=== PATIENT | female | born 1980 | race American Indian/Alaskan Native ===

== ENCOUNTER 2016-12-14 14:17 | Emergency (ER) | payer MEDICAID ==
[2016-12-14] MEDS ORDERED: THERMAZENE 50 GRAM TP SCH (14:22)
[2016-12-14] MEDS ORDERED: ZOFRAN IV ONE (14:35)
[2016-12-14] MEDS ORDERED: MORPHINE IV ONE ×2 (14:35→15:19)
[2016-12-14] MEDS ORDERED: ATIVAN IV ONE (14:35)
[2016-12-14] MEDS ORDERED: DUONEB 0.5 MG-3 MG/3 ML SOLN IH ONE (14:38)
[2016-12-14] MEDS ORDERED: NACL 0.9% 500 ML IR ONE ×2 (14:50→15:03)
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
[2016-12-14] MEDS ORDERED: MORPHINE ONE (15:12)
[2016-12-14 15:30] LABS: Anion Gap 19 mmol/L; Blood Urea Nitrogen 12 mg/dL (7-17); Calcium 9.1 mg/dL (8.4-10.2); Carbon Dioxide 20 mmol/L (22-30); Chloride 103.1 mmol/L (98-107); Glucose 120 mg/dL (65-100); Potassium 3.2 mmol/L (3.6-5.0); Sodium 139 mmol/L (137-145)
[2016-12-14 15:54] LABS: Basophils % (Auto) 0.3 % (0.0-1.8); Eosinophils % (Auto) 1.1 % (0.0-4.3); Hematocrit 38.2 % (30.3-42.9); Hemoglobin 12.9 gm/dl (10.1-14.3); Mean Corpuscular HGB Conc 34 % (30-34); Mean Corpuscular Hemoglobin 29 pg (28-32); Mean Corpuscular Volume 85 fl (79-97); Platelet Count 254 K/mm3 (140-440); Red Blood Count 4.51 M/mm3 (3.65-5.03); Red Cell Distribution Width 15.6 % (13.2-15.2); White Blood Count 5.9 K/mm3 (4.5-11.0)
[2016-12-14] MEDS ORDERED: DILAUDID IV ONE (15:55)
[2016-12-14] MEDS ORDERED: KETALAR IV ONE (16:00)
[2016-12-14] MEDS ORDERED: K-DUR PO ONE (16:06)
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
[2016-12-14] MEDS ORDERED: DILAUDID ONE (16:23)
[2016-12-14] MEDS ORDERED: NORMODYNE IV ONE ×2 (16:24→16:29)
[2016-12-14] MEDS ORDERED: BENADRYL IV ONE (16:29)
[2016-12-14 18:53] VITALS: BP 136/84
--- NOTE | 2016-12-15 09:14 | XRay Report ---
AP CHEST :12/14/16 14:17:00 CLINICAL: Difficulty breathing. COMPARISON:None. FINDINGS: Normal heart and pulmonary vasculature. The lungs are normally expanded and clear. The bones and soft tissues are normal. IMPRESSION: Normal chest.
== END 2016-12-14 18:30 | disposition other institution (70) ==
LOC: ED 14:17
DX: T24.221A Burn of second degree of right knee, initial encounter (principal); T24.222A Burn of second degree of left knee, initial encounter; T21.22XA Burn of second degree of abdominal wall, initial encounter; J45.901 Unspecified asthma with (acute) exacerbation; F41.9 Anxiety disorder, unspecified; E87.6 Hypokalemia; G43.909 Migraine, unspecified, not intractable, without status migrainosus; F17.200 Nicotine dependence, unspecified, uncomplicated; Z91.013 Allergy to seafood; Z88.0 Allergy status to penicillin; Z91.018 Allergy to other foods; X08.8XXA Exposure to other specified smoke, fire and flames, initial encounter; Y93.89 Activity, other specified; Y92.89 Other specified places as the place of occurrence of the external cause; Y99.8 Other external cause status
CPT/HCPCS: 36415; 71010; 80048; 85025; 94640; 96374; 96375; 99291; J1170; J2060; J2270; J2405

== ENCOUNTER 2019-12-04 23:11 | Observation (INO) | payer MEDICAID ==
[2019-12-05 00:01] LABS: Basophils % (Auto) 0.4 % (0.0-1.8); Eosinophils # (Auto) 0.1 K/mm3 (0.0-0.4); Eosinophils % (Auto) 2.4 % (0.0-4.3); Hematocrit 27.2 % (30.3-42.9); Hemoglobin 8.7 gm/dl (10.1-14.3); Lymphocytes # (Auto) 2.5 K/mm3 (1.2-5.4); Lymphocytes % (Auto) 42.1 % (13.4-35.0); Mean Corpuscular HGB Conc 32 % (30-34); Monocytes # (Auto) 0.3 K/mm3 (0.0-0.8); Monocytes % (Auto) 5.3 % (0.0-7.3); Platelet Count 317 K/mm3 (140-440); Red Blood Count 4.27 M/mm3 (3.65-5.03)
[2019-12-05] MEDS ORDERED: MORPHINE 4 MG/1 ML INJ IV ONE (00:02)
[2019-12-05] MEDS ORDERED: ONDANSETRON 4 MG/2 ML INJ IV ONE (00:02)
[2019-12-05 00:03] LABS: Mean Corpuscular Volume 64 fl (79-97); Red Cell Distribution Width 21.4 % (13.2-15.2)
[2019-12-05 00:12] LABS: INR 0.94 (0.87-1.13)
--- NOTE | 2019-12-05 00:21 | Emergency Department Report ---
<CLOTILDE MONET - Last Filed: 12/05/19 04:17> ED Chest Pain HPI - General Chief Complaint: Chest Pain Stated Complaint: CP Time Seen by Provider: 12/04/19 23:43 - Related Data Home Medications Medication Instructions Recorded Confirmed Last Taken Cetirizine HCl [ZyrTEC] 10 mg PO DAILY 12/14/16 12/14/16 Unknown Famotidine [Pepcid] 20 mg PO DAILY 12/14/16 12/14/16 Unknown Allergies Allergy/AdvReac Type Severity Reaction Status Date / Time chicken derived Allergy Hives Verified 12/25/13 19:45 coffee (Coffea arabica) Allergy Hives Verified 12/17/13 02:23 [coffee] peach [[place]] Allergy Hives Verified 12/25/13 19:45 Penicillins Allergy Swelling Verified 08/15/13 12:54 shellfish derived Allergy Hives Verified 12/17/13 02:23 strawberry [[place]] Allergy Hives Verified 12/17/13 02:23 chocolate Allergy Hives Uncoded 12/17/13 02:23 citrus Allergy Hives Uncoded 12/17/13 02:23 garlic Allergy Hives Uncoded 12/17/13 02:23 onion Allergy Hives Uncoded 12/17/13 02:23 tomatoes Allergy Hives Uncoded 12/17/13 02:23 Heart Score - HEART Score History: Slightly suspicious EKG: Non-specific Age: < 45 Risk factors: > 3 risk factors or hx of atherosclerotic disease Troponin: 1-3x normal limit HEART Score: 4 - Critical Actions Critical Actions: 4-6 pts:12-16.6% risk of adverse cardiac event. Should be ad mitted ED Past Medical Hx - Medications Home Medications: Home Medications Medication Instructions Recorded Confirmed Last Taken Type Cetirizine HCl [ZyrTEC] 10 mg PO DAILY 12/14/16 12/14/16 Unknown History Famotidine [Pepcid] 20 mg PO DAILY 12/14/16 12/14/16 Unknown History ED Course - Reevaluation(s) Reevaluation #1: 12/05/19 04:09 CT scan of the chest is negative for acute disease. Patient having persistent chest pain. Her second EKG is unchanged from prior, however, repeat troponin is elevated, with normal renal function. Patient will be admitted to the medical service given persistent chest pain, and elevated troponin. Nitroglycerin is reordered for pain. Hospital physician is paged to arrange admission. Reevaluation #2: 12/05/19 04:17 Case is presented to hospital physician, Dr. Jackie Grewal, who has accepted the patient to the medical service. He requested heparin drip. ED Medical Decision Making - Lab Data Result diagrams: 12/04/19 23:49 12/04/19 23:49 ED Disposition Clinical Impression: Chest pain, Acute chest pain, Elevated troponin, ACS (acute coronary syndrome) Disposition: DC-09 OP ADMIT IP TO THIS HOSP Is pt being admited?: Yes Does the pt Need Aspirin: No (Patient was given aspirin by EMS) Condition: Serious <SHERYL GOVEA - Last Filed: 12/05/19 16:13> ED Chest Pain HPI - General Source: EMS Mode of arrival: Stretcher Limitations: No Limitations - History of Present Illness Initial Comments: 39-year-old -[place] female presents to the emergency department via EMS from home with complaint of left-sided chest pain and some shortness of breath that has been going on since this morning but got worse over the past few hours. She received full dose aspirin and 2 sublingual nitro in route with EMS with some mild improvement. She has a past medical history of hypertension and lupus. The patient also says that she was recently diagnosed with ACS at [facility]. She allegedly had a negative heart cath done in August of last year. The patient does present with some discharge instructions from [facility] that give the diagnoses of "suspected myocarditis", NSTEMI and ACS from when she was admitted there from 11/24 - 11/26. She is an occasional tobacco smoker. She follows with [facility]. No recent travel or sick contacts at home. Severity scale (0 -10): 10 Heart Score - HEART Score History: Slightly suspicious EKG: Normal Age: < 45 Risk factors: > 3 risk factors or hx of atherosclerotic disease Troponin: 1-3x normal limit HEART Score: 3 - Critical Actions Critical Actions: 4-6 pts:12-16.6% risk of adverse cardiac event. Should be admitted ED Review of Systems ROS: Stated complaint: CP Other details as noted in HPI Comment: All other systems reviewed and negative Constitutional: denies: chills, fever Eyes: denies: eye pain, vision change ENT: denies: ear pain, throat pain Respiratory: shortness of breath. denies: cough Cardiovascular: chest pain. denies: palpitations, edema Gastrointestinal: nausea. denies: abdominal pain, vomiting Genitourinary: denies: dysuria, discharge Musculoskeletal: denies: back pain, arthralgia Skin: denies: rash, lesions Neurological: denies: headache, weakness ED Past Medical Hx - Past Medical History Previous Medical History?: Yes Hx Hypertension: No Hx CVA: No Hx Heart Attack/AMI: No Hx Congestive Heart Failure: No Hx Diabetes: No Hx Deep Vein Thrombosis: No Hx Pulmonary Embolism: No Hx GERD: No Hx Liver Disease: No Hx Renal Disease: No Hx Sickle Cell Disease: No Hx Arthritis: No Hx Headaches / Migraines: Yes Hx Seizures: No Hx Kidney Stones: No Hx Psychiatric Treatment: No Hx Asthma: Yes (smokes cigarrettes) Hx COPD: No Hx Tuberculosis: No Hx Dementia: No Hx HIV: No - Surgical History Hx Coronary Stent: No Hx Open Heart Surgery: No Hx Pacemaker: No Hx Internal Defibrillator: No Hx Cholecystectomy: No Hx Appendectomy: No Hx Breast Surgery: No - Social History Smoking Status: Former Smoker Substance Use Type: None ED Physical Exam - General Limitations: No Limitations - Other Other exam information: GENERAL: The patient is well-developed well-nourished. HENT: Normocephalic. Atraumatic. Patient has moist mucous membranes. EYES: Extraocular motions are intact. Pupils equal reactive to light bilaterally. NECK: Supple. Trachea is midline. CHEST/LUNGS: Clear to auscultation. There is no respiratory distress noted. HEART/CARDIOVASCULAR: Regular. There is no tachycardia. ABDOMEN: Abdomen is soft, nontender. Patient has normal bowel sounds. Obese habitus. SKIN: Skin is warm and dry. NEURO: The patient is awake, alert, and oriented. The patient is cooperative. The patient has no focal neurologic deficits. Normal speech. MUSCULOSKELETAL: There is no tenderness or deformity. There is no evidence of acute injury. ED Course Vital Signs 12/04/19 12/04/19 12/04/19 23:35 23:39 23:45 Temperature 97.7 F Pulse Rate 93 H Respiratory 20 Rate Blood Pressure 122/77 118/84 O2 Sat by Pulse 100 100 100 Oximetry 12/04/19 12/05/19 12/05/19 23:55 00:00 00:10 Temperature Pulse Rate 91 H 88 Respiratory 17 13 17 Rate Blood Pressure 118/84 127/84 O2 Sat by Pulse 100 99 Oximetry 12/05/19 12/05/19 12/05/19 00:15 00:31 00:45 Temperature Pulse Rate 81 79 80 Respiratory 20 20 16 Rate Blood Pressure 132/72 132/72 109/63 O2 Sat by Pulse 100 98 97 Oximetry 12/05/19 12/05/19 12/05/19 01:00 01:15 01:30 Temperature Pulse Rate 74 83 79 Respiratory 17 18 15 Rate Blood Pressure 121/72 118/72 109/58 O2 Sat by Pulse 99 Oximetry 12/05/19 12/05/19 12/05/19 01:45 02:00 02:15 Temperature Pulse Rate 79 85 73 Respiratory 16 14 14 Rate Blood Pressure 114/64 118/70 107/64 O2 Sat by Pulse 97 100 100 Oximetry 12/05/19 12/05/19 12/05/19 02:30 02:45 03:00 Temperature Pulse Rate 76 79 75 Respiratory 14 16 15 Rate Blood Pressure 110/63 112/67 107/74 O2 Sat by Pulse 100 100 99 Oximetry 12/05/19 12/05/19 12/05/19 03:15 04:01 04:15 Temperature Pulse Rate 73 76 Respiratory 16 22 Rate Blood Pressure 107/74 107/74 107/66 O2 Sat by Pulse 99 97 99 Oximetry 12/05/19 12/05/19 12/05/19 04:30 04:45 05:00 Temperature Pulse Rate 74 73 70 Respiratory 13 14 14 Rate Blood Pressure 100/63 109/61 111/60 O2 Sat by Pulse 97 99 97 Oximetry 12/05/19 12/05/19 12/05/19 05:15 05:30 05:45 Temperature Pulse Rate 74 79 98 H Respiratory 13 18 23 Rate Blood Pressure 114/63 123/60 123/60 O2 Sat by Pulse 98 98 100 Oximetry 12/05/19 12/05/19 12/05/19 06:00 06:15 06:30 Temperature Pulse Rate 79 73 70 Respiratory 13 13 14 Rate Blood Pressure 113/70 110/66 114/64 O2 Sat by Pulse 100 99 100 Oximetry 12/05/19 12/05/19 12/05/19 06:45 07:00 07:15 Temperature Pulse Rate 67 75 80 Respiratory 13 14 13 Rate Blood Pressure 111/65 121/74 110/68 O2 Sat by Pulse 97 99 97 Oximetry 12/05/19 12/05/19 12/05/19 07:30 07:45 08:00 Temperature Pulse Rate 72 77 78 Respiratory 13 13 14 Rate Blood Pressure 109/67 103/70 113/66 O2 Sat by Pulse 98 99 100 Oximetry 12/05/19 12/05/19 12/05/19 08:15 08:31 08:45 Temperature Pulse Rate 81 84 88 Respiratory 15 11 L 15 Rate Blood Pressure 117/70 124/61 121/66 O2 Sat by Pulse 99 99 99 Oximetry 12/05/19 12/05/19 09:00 09:11 Temperature Pulse Rate 73 79 Respiratory 14 11 L Rate Blood Pressure 119/68 119/68 O2 Sat by Pulse 98 99 Oximetry CRISTOBAL score - Cristobal Score Age > 65: (0) No Aspirin use within the Past 7 Days: (1) Yes 3 or more CAD Risk Factors: (1) Yes 2 or more Angina events in past 24 hrs: (1) Yes Known CAD with more than 50% Stenosis: (0) No Elevated Cardiac Markers: (1) Yes ST Deviation Greater than 0.5mm: (0) No CRISTOBAL Score: 4 ED Medical Decision Making - Lab Data Result diagrams: 12/04/19 23:49 12/04/19 23:49 - EKG Data -: EKG Interpreted by Me EKG shows normal: sinus rhythm, axis, intervals, QRS complexes, ST-T waves Rate: normal - EKG Data When compared to previous EKG there are: previous EKG unavailable Interpretation: normal EKG - Radiology Data Radiology results: image reviewed interpreted by me: Chest x-ray does not show any acute process. There are no pleural effusions, obvious pneumonia and there is no pneumothorax. - Medical Decision Making This patient presents to the emergency department with some left-sided chest pain that started this morning and has been going on since but got progressively more painful this evening. She has been taking all of her medications including the anti-inflammatories, that were prescribed from her most recent visit at [facility]. She received aspirin and sublingual nitroglycerin in route. EKG does not show any signs of ST elevation RI, ischemia or dysrhythmia. Chest x-ray does not show any pleural effusions, pneumothorax, pneumonia, focal consolidation, or any other acute process. Heart and lung sounds are normal to auscultation. Patient's labs thus far have been unremarkable including CBC, metabolic panel and first troponin. The first troponin was within the normal range and came back at 0.018. The patient was given a dose of IV analgesia here and her pain has come down to a 5 out of 10. The patient will have a second troponin and will have a d-dimer. This patient has been signed out to my colleague to follow the results of these labs and assist with disposition. In reviewing the rest of the chart the patient's troponins continue to rise. She had an elevated d-dimer level and had a CT angiography of the chest that did not show any pulmonary embolism. Due to the elevated troponins the patient was admitted to the hospital for further evaluation and heparin drip. Critical care attestation.: If time is entered above; I have spent that time in minutes in the direct care of this critically ill patient, excluding procedure time. ED Disposition Is pt being admited?: Yes
[2019-12-05 00:22] LABS: BUN/Creatinine Ratio 10; Blood Urea Nitrogen 9 mg/dL (7-17); Calcium 8.7 mg/dL (8.4-10.2); Hemolysis Index 3
--- NOTE | 2019-12-05 01:05 | XRay Report ---
CHEST 1 VIEW INDICATION / CLINICAL INFORMATION: CP. COMPARISON: 12/14/2016 FINDINGS: SUPPORT DEVICES: None. HEART / MEDIASTINUM: No significant abnormality. LUNGS / PLEURA: No significant pulmonary or pleural abnormality. No pneumothorax. ADDITIONAL FINDINGS: No significant additional findings. IMPRESSION: 1. No acute findings. Signer Name: Rey Slaughter MD Signed: 12/05/2019 1:00 AM Workstation Name: [id number]
[2019-12-05 03:50] LABS: Chol/HDL Ratio 3.41 %
[2019-12-05] MEDS ORDERED: METOCLOPRAMIDE 10 MG/2 ML INJ IV ONE (04:03)
[2019-12-05] MEDS ORDERED: NITROGLYCERIN 0.4 MG TAB SUBL SL PRN (04:03)
--- NOTE | 2019-12-05 04:03 | Cat Scan Report ---
CT angio chest INDICATION / CLINICAL INFORMATION: MAIN: cp + d dimer 100cc of omnipaque 350 . TECHNIQUE: Precontrast bolus timing images were obtained followed by postcontrast axial and reformatted images. 3-plane MIP reconstructions were performed at an independent workstation by the technologist. All CT scans at this location are performed using CT dose reduction for ALARA by means of automated exposure control. COMPARISON: None available. FINDINGS: Pulmonary arterial enhancement is normal. No evidence of pulmonary embolus. No acute lung disease. No mediastinal adenopathy. No pericardial effusion. A small hiatal hernia is demonstrated. Limited upper abdominal images show no significant abnormality. Hypertrophic degenerative changes are seen in the lower thoracic spine. IMPRESSION: 1. No evidence of pulmonary embolus or acute disease. Signer Name: Rey Slaughter MD Signed: 12/05/2019 3:59 AM Workstation Name: [id number]
[2019-12-05] MEDS ORDERED: HEPARIN 10,000 UNITS/10 ML VIAL IV ONE (04:17)
[2019-12-05] MEDS ORDERED: ACETAMINOPHEN 325 MG TAB PO PRN (04:35)
[2019-12-05] MEDS ORDERED: MAGNESIUM HYDROXIDE (MOM) ORAL LIQD UDC PO PRN (04:35)
[2019-12-05] MEDS ORDERED: ONDANSETRON 4 MG/2 ML INJ IV PRN (04:35)
[2019-12-05] MEDS ORDERED: MORPHINE 2 MG/1 ML INJ IV PRN (04:35)
--- NOTE | 2019-12-05 04:50 | History and Physical Report ---
History of Present Illness Date of examination: 12/05/19 Date of admission: 12/05/2019 Chief complaint: Chest pain History of present illness: 39-year-old -[place] female with significant past medical history of hypertension and lupus presents to the emergency room today complaining of chest pain. Chest pain is said to be left-sided and has been getting worse over the past few hours. There is no known relieving or exacerbating factor. She has had some mild shortness of breath and nausea. She denies any vomiting and no diarrhea. She denies any fever or chills. Patient denies any sick contacts and no recent travel. Patient was recently diagnosed with acute coronary syndrome at [facility] was said to have had a negative cardiac cath done in August 2019. She was also seen recently at [facility] with a suspicion for myocarditis and ACS sometime in October 2019. Patient follows up with [facility]. Patient felt some relief after being given aspirin and sublingual nitroglycerin by EMS in route to the hospital. Work-up in the emergency room initially showed a normal first set of troponin, however second set of troponin became positive. Patient subsequently started on heparin drip. Past History Past Medical History: No medical history, hypertension, other (History of lupus) Past Surgical History: No surgical history Social history: smoking (Smokes occasionally) Family history: other (Father has history of heart disease) Medications and Allergies Allergies Allergy/AdvReac Type Severity Reaction Status Date / Time chicken derived Allergy Hives Verified 12/25/13 19:45 coffee (Coffea arabica) Allergy Hives Verified 12/17/13 02:23 [coffee] peach [[place]nee] Allergy Hives Verified 12/25/13 19:45 Penicillins Allergy Swelling Verified 08/15/13 12:54 shellfish derived Allergy Hives Verified 12/17/13 02:23 strawberry [Farrar] Allergy Hives Verified 12/17/13 02:23 chocolate Allergy Hives Uncoded 12/17/13 02:23 citrus Allergy Hives Uncoded 12/17/13 02:23 garlic Allergy Hives Uncoded 12/17/13 02:23 onion Allergy Hives Uncoded 12/17/13 02:23 tomatoes Allergy Hives Uncoded 12/17/13 02:23 Home Medications Medication Instructions Recorded Confirmed Last Taken Type Cetirizine HCl [ZyrTEC] 10 mg PO DAILY 12/14/16 12/14/16 Unknown History Famotidine [Pepcid] 20 mg PO DAILY 12/14/16 12/14/16 Unknown History Active Meds: Active Medications Acetaminophen (Tylenol) 650 mg PO Q4H PRN PRN Reason: Pain MILD(1-3)/Fever >100.5/GARCIA Aspirin (Ecotrin) 325 mg PO QDAY BILLY Heparin Sodium/Sodium Chloride (Heparin/ 0.45% Nacl-25,000 Unit/500 Ml) 25,000 unit in 500 mls @ 30 mls/hr IV TITR BILLY; Protocol Magnesium Hydroxide (Milk Of Magnesia) 30 ml PO Q4H PRN PRN Reason: Constipation Morphine Sulfate (Morphine) 2 mg IV Q4H PRN PRN Reason: Pain, Moderate (4-6) Nitroglycerin (Nitrostat) 0.4 mg SL .Q5MIN PRN PRN Reason: Chest Pain Ondansetron HCl (Zofran) 4 mg IV Q8H PRN PRN Reason: Nausea And Vomiting Sodium Chloride (Sodium Chloride Flush Syringe 10 Ml) 10 ml IV BID BILLY Sodium Chloride (Sodium Chloride Flush Syringe 10 Ml) 10 ml IV PRN PRN PRN Reason: LINE FLUSH Sodium Chloride (Sodium Chloride Flush Syringe 10 Ml) 10 ml IV PRN PRN PRN Reason: LINE FLUSH Review of Systems Constitutional: no fever, no chills Cardiovascular: chest pain, no palpitations, no leg edema Respiratory: shortness of breath, no cough Gastrointestinal: nausea, no vomiting, no diarrhea Musculoskeletal: no neck pain, no low back pain Integumentary: no rash, no pruritis Neurological: no headaches, no change in mentation Exam - Constitutional Vitals: Temp Pulse Resp BP Pulse Ox 97.7 F 73 16 107/74 99 12/04/19 23:39 12/05/19 03:15 12/05/19 03:15 12/05/19 03:15 12/05/19 03:15 General appearance: Present: no acute distress, well-nourished, obese - EENT Eyes: Present: PERRL, EOM intact ENT: hearing intact, clear oral mucosa, dentition normal - Neck Neck: Present: supple, normal ROM - Respiratory Respiratory: bilateral: CTA - Cardiovascular Rhythm: regular Heart Sounds: Present: S1 & S2 - Extremities Extremities: no ischemia, No edema, Full ROM Peripheral Pulses: within normal limits - Abdominal General gastrointestinal: Present: soft, non-tender, non-distended - Integumentary Integumentary: Present: clear, warm, dry - Musculoskeletal Musculoskeletal: strength equal bilaterally - Psychiatric Psychiatric: appropriate mood/affect, intact judgment & insight, cooperative - Neurologic Neurologic: CNII-XII intact, moves all extremities Results - Labs CBC & Chem 7: 12/04/19 23:49 12/04/19 23:49 Labs: Abnormal lab results 12/04/19 12/04/19 12/05/19 Range/Units 23:49 23:49 01:37 Hgb 8.7 L (10.1-14.3) gm/dl Hct 27.2 L (30.3-42.9) % MCV 64 L (79-97) fl MCH 20 L (28-32) pg RDW 21.4 H (13.2-15.2) % Lymph % (Auto) 42.1 H (13.4-35.0) % D-Dimer 888.88 H (0-234) ng/mlDDU Glucose 139 H (65-100) mg/dL Troponin T (0.00-0.029) ng/mL HDL Cholesterol (40-59) mg/dL 12/05/19 Range/Units 02:45 Hgb (10.1-14.3) gm/dl Hct (30.3-42.9) % MCV (79-97) fl MCH (28-32) pg RDW (13.2-15.2) % Lymph % (Auto) (13.4-35.0) % D-Dimer (0-234) ng/mlDDU Glucose (65-100) mg/dL Troponin T 0.056 H D (0.00-0.029) ng/mL HDL Cholesterol 31 L (40-59) mg/dL Assessment and Plan - Patient Problems (1) Acute chest pain Current Visit: Yes Status: Acute Plan to address problem: Patient will be admitted and placed on telemetry. Will check serial cardiac enzymes. Patient placed on aspirin. We also placed on sublingual nitroglycerin and IV morphine as needed. Cargo Broker will be consulted for further evaluation and recommendation. (2) Elevated troponin Current Visit: Yes Status: Acute Plan to address problem: We will continue to monitor patient on telemetry. Will trend serial cardiac enzymes. (3) DVT prophylaxis Current Visit: Yes Status: Acute Plan to address problem: Patient currently on anticoagulation. (4) Full code status Current Visit: Yes Status: Acute
[2019-12-05] MEDS: HEPARIN/ 0.45% NACL DRIP 25,000 UNIT/500 ML BAG IV SCH ×2 (05:17→21:42)
[2019-12-05] MEDS: PANTOPRAZOLE 40 MG TAB PO SCH (11:07)
--- NOTE | 2019-12-05 11:58 | Consultation ---
HISTORY OF PRESENT ILLNESS: The patient is a 39-year-old female with a history of lupus and hypertension, who has had recurrent admissions for chest pain. She states her chest pain started yesterday, it was quite severe at one point and had a pleuritic component. She felt short of breath. There has been no infectious symptoms, coughing, wheezing or mucus production. There are no GI symptoms and no relationship of her chest pain to eating. There is no change in position. There was no tender spot. She had an episode about 2 weeks ago and hospitalized in [place]. She has been in [place] twice and had a negative cardiac catheterization. She was told evidence of myocarditis. There has been no palpitation, dizziness, or arrhythmias. There has been no claudication or ankle edema. She has had lupus for about 8 years and it has caused skin and joint problems. There are no sleep disorders. MEDICATIONS: See the nurse's list. SOCIAL HISTORY: Smoking, occasional. Alcohol, no heavy use. OPERATIONS: None. FAMILY HISTORY: Heart disease -- father. ALLERGIES: Multiple including CHICKEN, COFFEE, PEACH, PENICILLIN, SHELLFISH, STRAWBERRY, CHOCOLATES, CITRUS, GARLIC, ONION AND TOMATO. REVIEW OF SYSTEMS: She has been noted to have hypertension and mild hyperlipidemia. PHYSICAL EXAMINATION: GENERAL: Markedly overweight, no acute distress. Alert, oriented, cooperative. Mental status normal. EYES, NOSE, AND THROAT: Unremarkable. NECK: Reveals no JVD or bruits. Neck is supple, no masses. LUNGS: Clear. No labored respirations. HEART: Regular rate and rhythm, grade 2 systolic murmur. ABDOMEN: Soft, nontender, no masses. EXTREMITIES: No cyanosis, clubbing, edema. Peripheral pulses are intact. NEUROLOGIC: Grossly symmetrical. SKIN: Clear. EKG: There are three EKGs, second and third are normal, first one shows mild ST elevation could be consistent with pericarditis. IMPRESSION: 1. Chest pain and shortness of breath: Possibly due to recurrent pericarditis. It will be worthwhile for her to see Rheumatology. She describes a negative coronary angiogram. She was told that she may have myocarditis. The previous workup will be reviewed. 2. Obesity. 3. Anemia: Suspect secondary to lupus. 4. Hyperlipidemia, hypertension, history of lupus for approximately 8 years. Thank you for the consultation. We will follow the patient. [facility]# [id number] ANGELLA/TRISHA
[2019-12-05] MEDS ORDERED: IBUPROFEN 800 MG TAB PO PRN (16:33)
[2019-12-06] MEDS: HEPARIN/ 0.45% NACL DRIP 25,000 UNIT/500 ML BAG IV SCH (00:22)
--- NOTE | 2019-12-06 07:17 | Progress Note ---
Assessment and Plan Assessment and plan: 39-year-old -Chilean female with significant past medical history of hypertension and lupus presents to the emergency room today complaining of chest pain. Chest pain is said to be left-sided and has been getting worse over the past few hours. There is no known relieving or exacerbating factor. She has had some mild shortness of breath and nausea. She denies any vomiting and no diarrhea. She denies any fever or chills. Patient denies any sick contacts and no recent travel. Patient was recently diagnosed with acute coronary syndrome at [facility] was said to have had a negative cardiac cath done in August 2019. She was also seen recently at [facility] with a suspicion for myocarditis and ACS sometime in October 2019. Patient follows up with [facility]. Patient felt some relief after being given aspirin and sublingual nitroglycerin by EMS in route to the hospital. Work-up in the emergency room initially showed a normal first set of troponin, however second set of troponin became positive. Patient subsequently started on heparin drip. CT chest: IMPRESSION: 1. No evidence of pulmonary embolus or acute disease. Acute chest pain concerning for non-ST elevated MO Hypertension Lupus Morbid obesity Plan Continue non-ST elevated MO protocol with, aspirin, statin, beta-luther, heparin drip Await cardiology evaluation myocarditis could still be in the differential. We will see if we can obtain results from [place] if also they had an echocardiogram over there. Weight loss counseling provided to the patient. Resume home medication appropriately. Hospitalist Physical - Physical exam Narrative exam: VITAL SIGNS: Reviewed. GENERAL: The patient appears normally developed, morbidly obese vital signs as documented. HEAD: No signs of head trauma. EYES: Pupils are equal. Extraocular motions intact. EARS: Hearing grossly intact. MOUTH: Oropharynx is normal. NECK: No adenopathy, no JVD. CHEST: Chest with clear breath sounds bilaterally. No wheezes, rales, or rhonchi. CARDIAC: Regular rate and rhythm. S1 and S2, without murmurs, gallops, or rubs. VASCULAR: No Edema. Peripheral pulses normal and equal in all extremities. ABDOMEN: Soft, non tender and non distended. No rebound or guarding, and no masses palpated. Bowel Sounds normal. MUSCULOSKELETAL: Good range of motion of all major joints. Extremities without clubbing, cyanosis or edema. NEUROLOGIC EXAM: Alert and oriented x 3 No focal sensory or strength deficits. Speech normal. Follows commands. PSYCHIATRIC: Mood normal. SKIN: detial exam as documented in skin assessment - Constitutional Vitals: Temp Pulse Resp BP Pulse Ox 98.5 F 79 18 109/60 100 12/06/19 06:41 12/06/19 06:41 12/06/19 06:41 12/06/19 06:41 12/06/19 06:41 General appearance: Present: no acute distress, well-nourished, obese CASSIE score - Cassie Score Age > 65: (0) No Aspirin use within the Past 7 Days: (1) Yes 3 or more CAD Risk Factors: (1) Yes 2 or more Angina events in past 24 hrs: (1) Yes Known CAD with more than 50% Stenosis: (0) No Elevated Cardiac Markers: (1) Yes ST Deviation Greater than 0.5mm: (0) No CASSIE Score: 4 Results - Labs CBC & Chem 7: 12/04/19 23:49 12/04/19 23:49 Labs: Laboratory Last Values WBC 5.9 K/mm3 (4.5-11.0) 12/04/19 23:49 RBC 4.27 M/mm3 (3.65-5.03) 12/04/19 23:49 Hgb 8.7 gm/dl (10.1-14.3) L 12/04/19 23:49 Hct 27.2 % (30.3-42.9) L 12/04/19 23:49 MCV 64 fl (79-97) L 12/04/19 23:49 MCH 20 pg (28-32) L 12/04/19 23:49 MCHC 32 % (30-34) 12/04/19 23:49 RDW 21.4 % (13.2-15.2) H 12/04/19 23:49 Plt Count 317 K/mm3 (140-440) 12/04/19 23:49 Lymph % (Auto) 42.1 % (13.4-35.0) H 12/04/19 23:49 [place] % (Auto) 5.3 % (0.0-7.3) 12/04/19 23:49 Eos % (Auto) 2.4 % (0.0-4.3) 12/04/19 23:49 Baso % (Auto) 0.4 % (0.0-1.8) 12/04/19 23:49 Lymph # 2.5 K/mm3 (1.2-5.4) 12/04/19 23:49 [place] # 0.3 K/mm3 (0.0-0.8) 12/04/19 23:49 Eos # 0.1 K/mm3 (0.0-0.4) 12/04/19 23:49 Baso # 0.0 K/mm3 (0.0-0.1) 12/04/19 23:49 Seg Neutrophils % 49.8 % (40.0-70.0) 12/04/19 23:49 Seg Neutrophils # 2.9 K/mm3 (1.8-7.7) 12/04/19 23:49 ESR 20 mm/Hr (0-20) 12/05/19 23:37 PT 12.7 Sec. (12.2-14.9) 12/04/19 23:49 INR 0.94 (0.87-1.13) 12/04/19 23:49 D-Dimer 888.88 ng/mlDDU (0-234) H 12/05/19 01:37 Heparin Anti-Xa Level 0.63 U.I./ml (0.3-0.7) 12/05/19 23:37 Sodium 137 mmol/L (137-145) 12/04/19 23:49 Potassium 3.6 mmol/L (3.6-5.0) 12/04/19 23:49 Chloride 104.1 mmol/L (98-107) 12/04/19 23:49 Carbon Dioxide 23 mmol/L (22-30) 12/04/19 23:49 Anion Gap 14 mmol/L 12/04/19 23:49 BUN 9 mg/dL (7-17) 12/04/19 23:49 Creatinine 0.9 mg/dL (0.7-1.2) 12/04/19 23:49 Estimated GFR > 60 ml/min 12/04/19 23:49 BUN/Creatinine Ratio 10 % 12/04/19 23:49 Glucose 139 mg/dL (65-100) H 12/04/19 23:49 Calcium 8.7 mg/dL (8.4-10.2) 12/04/19 23:49 Troponin T 0.438 ng/mL (0.00-0.029) H* D 12/05/19 14:01 C-Reactive Protein 0.50 mg/dL (0.00-1.30) 12/05/19 23:37 Triglycerides 132 mg/dL (2-149) 12/05/19 02:45 Cholesterol 106 mg/dL (50-199) 12/05/19 02:45 LDL Cholesterol Direct 67 mg/dL (50-130) 12/05/19 02:45 HDL Cholesterol 31 mg/dL (40-59) L 12/05/19 02:45 Cholesterol/HDL Ratio 3.41 % 12/05/19 02:45 HCG, Qual Negative (Negative) 12/04/19 23:49 Pride/IV: IV Catheter Type [Right INT / Saline Lock Antecubital] IV Catheter Type [Right Wrist] Peripheral IV Active Medications - Current Medications Current Medications: Generic Name Dose Route Start Last Admin Trade Name Freq PRN Reason Stop Dose Admin Acetaminophen 650 mg 12/05/19 04:35 Tylenol PO Q4H PRN Pain MILD(1-3)/Fever >100.5/GARCIA Aspirin 325 mg 12/06/19 10:00 Ecotrin PO QDAY BILLY Atorvastatin Calcium 40 mg 12/05/19 22:00 12/05/19 21:42 Lipitor PO 40 mg QHS BILLY Administration Heparin Sodium/Sodium Chloride 25,000 unit in 500 mls @ 30 mls/hr 12/05/19 05:00 12/06/19 00:22 Heparin/ 0.45% Nacl-25,000 Unit/500 Ml IV 1,350 units/hr TITR BILLY 27 mls/hr Administration Protocol 1,500 UNITS/HR Ibuprofen 800 mg 12/05/19 16:33 12/05/19 17:58 Ibuprofen PO 800 mg Q8H PRN Administration Pain, Mild (1-3) Magnesium Hydroxide 30 ml 12/05/19 04:35 Milk Of Magnesia PO Q4H PRN Constipation Morphine Sulfate 2 mg 12/05/19 04:35 12/05/19 14:24 Morphine IV 2 mg Q4H PRN Administration Pain, Moderate (4-6) Nitroglycerin 0.4 mg 12/05/19 04:03 Nitrostat SL .Q5MIN PRN Chest Pain Ondansetron HCl 4 mg 04/05/20 04:35 12/05/19 14:31 Zofran IV 4 mg Q8H PRN Administration Nausea And Vomiting Pantoprazole Sodium 40 mg 12/05/19 10:00 12/05/19 11:07 Protonix PO 40 mg QDAY BILLY Administration Sodium Chloride 10 ml 12/05/19 10:00 12/05/19 22:41 Sodium Chloride Flush Syringe 10 Ml IV Not Given BID BILLY Sodium Chloride 10 ml 12/05/19 04:35 Sodium Chloride Flush Syringe 10 Ml IV PRN PRN LINE FLUSH
[2019-12-06 09:26] LABS: Basophils % (Auto) 0.8 % (0.0-1.8); Eosinophils # (Auto) 0.1 K/mm3 (0.0-0.4); Eosinophils % (Auto) 2.7 % (0.0-4.3); Hematocrit 27.5 % (30.3-42.9); Hemoglobin 8.5 gm/dl (10.1-14.3); Lymphocytes # (Auto) 2.2 K/mm3 (1.2-5.4); Lymphocytes % (Auto) 48.9 % (13.4-35.0); Mean Corpuscular HGB Conc 31 % (30-34); Monocytes # (Auto) 0.2 K/mm3 (0.0-0.8); Monocytes % (Auto) 5.3 % (0.0-7.3); Platelet Count 320 K/mm3 (140-440); Red Blood Count 4.35 M/mm3 (3.65-5.03)
[2019-12-06] MEDS: PANTOPRAZOLE 40 MG TAB PO SCH (09:27)
[2019-12-06 09:32] LABS: Mean Corpuscular Volume 63 fl (79-97)
[2019-12-06 09:45] LABS: BUN/Creatinine Ratio 9; Blood Urea Nitrogen 8 mg/dL (7-17); Calcium 8.8 mg/dL (8.4-10.2); Hemolysis Index 12
[2019-12-06 09:48] LABS: INR 1.09 (0.87-1.13)
[2019-12-06 09:56] LABS: Partial Thromboplastin Time 65.5 Sec. (24.2-36.6)
[2019-12-06] MEDS ORDERED: ASPIRIN EC 325 MG TAB PO SCH (10:00)
--- NOTE | 2019-12-06 11:56 | Progress Note ---
Assessment and Plan - Patient Problems (1) Atypical chest pain Current Visit: Yes Status: Acute Plan to address problem: Chest pain is atypical, characteristics of musculoskeletal chest pain such as costochondritis. She has had extensive cardiac ischemic work-up including a negative cardiac catheterization just 3 months ago. No further cardiac ischemic work-up is indicated for the same chest pain characteristic. She has obtained relief with the use of oral ibuprofen, we will try intravenous Toradol while hospitalized, and discharge on oral ibuprofen when chest pain fully subsides. Subjective Date of service: 12/06/19 Interval history: The patient is a 39-year-old woman admitted with atypical chest pain. Chest pain is on the left side, nonexertional, but positional with movements of the thorax. She denies a pleuritic component. There is no shortness of breath. She has had extensive cardiac chest pain evaluation in the recent past including a cardiac catheterization done just 3 months ago at [facility], reportedly normal. Comorbidities include a history of hypertension and lupus disease. She states her prior lupus exacerbation consisted of rash, and her current symptoms do not appear to be reminiscent of her lupus flare-ups. Serial ECG showing normal sinus rhythm, normal ECG. Chest x-ray is unremarkable. Laboratory values do show a mild elevation of troponin levels to 0.4. An echocardiogram today demonstrated normal left ventricular systolic function with ejection fraction of 60%, no significant valvular lesions. Objective Vital Signs Temp Pulse Resp BP BP Pulse Ox 12/06/19 11:13 80 12/06/19 07:47 98.3 F 80 18 105/56 98 12/06/19 06:41 98.5 F 79 18 109/60 100 12/05/19 23:25 98.4 F 83 18 106/65 97 12/05/19 23:00 83 12/05/19 19:50 98.8 F 83 20 104/48 98 12/05/19 16:39 98.0 F 86 18 109/60 97 12/05/19 15:04 85 - Physical Examination General: No Apparent Distress HEENT: Positive: PERRL Neck: Positive: neck supple Cardiac: Positive: Reg Rate and Rhythm Lungs: Positive: clear to auscultation Neuro: Positive: Grossly Intact Abdomen: Positive: Soft Skin: Positive: Clear Extremities: Absent: edema - Labs and Meds Coagulation 12/06/19 Range/Units 08:52 PT 14.2 (12.2-14.9) Sec. INR 1.09 (0.87-1.13) APTT 65.5 H* (24.2-36.6) Sec. CBC 12/06/19 Range/Units 08:52 WBC 4.6 (4.5-11.0) K/mm3 RBC 4.35 (3.65-5.03) M/mm3 Hgb 8.5 L (10.1-14.3) gm/dl Hct 27.5 L (30.3-42.9) % Plt Count 320 (140-440) K/mm3 Lymph # 2.2 (1.2-5.4) K/mm3 [place] # 0.2 (0.0-0.8) K/mm3 Eos # 0.1 (0.0-0.4) K/mm3 Baso # 0.0 (0.0-0.1) K/mm3 Comprehensive Metabolic Panel 12/06/19 Range/Units 08:52 Sodium 138 (137-145) mmol/L Potassium 4.1 (3.6-5.0) mmol/L Chloride 104.8 (98-107) mmol/L Carbon Dioxide 19 L (22-30) mmol/L BUN 8 (7-17) mg/dL Creatinine 0.9 (0.7-1.2) mg/dL Glucose 104 H (65-100) mg/dL Calcium 8.8 (8.4-10.2) mg/dL
[2019-12-06] MEDS ORDERED: KETOROLAC 30 MG/1 ML INJ IV SCH (12:00)
--- NOTE | 2019-12-06 12:56 | Discharge Summary ---
Providers - Providers Date of Admission: 12/05/19 06:14 Attending physician: LOLIS GILBERT MD 12/05/19 04:16 Consult to Physician [CONS] Urgent Comment: Consulting Provider: ALFONSO LAU Physician Instructions: Reason For Exam: cp + troponin, known to [facility] Primary care physician: DEMURRAGE AGENT Hospitalization Reason for admission: Chest pain Condition: Good Hospital course: 39-year-old -Pakistani female with significant past medical history of hypertension and lupus presents to the emergency room today complaining of chest pain. Chest pain is said to be left-sided and has been getting worse over the past few hours. There is no known relieving or exacerbating factor. She has had some mild shortness of breath and nausea. She denies any vomiting and no diarrhea. She denies any fever or chills. Patient denies any sick contacts and no recent travel. Patient was recently diagnosed with acute coronary syndrome at [facility] was said to have had a negative cardiac cath done in August 2019. She was also seen recently at [facility] with a suspicion for myocarditis and ACS sometime in October 2019. [facility]. Patient felt some relief after being given aspirin and sublingual nitroglycerin by EMS in route to the hospital. Work-up in the emergency room initially showed a normal first set of troponin, however second set of troponin became positive. Patient subsequently started on heparin drip. CT chest: IMPRESSION: 1. No evidence of pulmonary embolus or acute disease. Cardiology evaluated the patient decided that the patient was not having an NSTEMI but rather costochondritis. There is also clinical suspicion for pleuritis considering underlying lupus. The patient has not followed up with her physician and has been off her steroids. Will start on a Medrol Dosepak. We will continue NSAIDs as this worked for the patient she is currently chest pain-free Heparin drip has been discontinued elevated troponin was likely secondary to inflammation otherwise no ischemic event is noted. She will follow with her primary care physician Acute chest pain continue to costochondritis Type II HI Hypertension Lupus with presumed flare Morbid obesity Disposition: TO HOME OR SELFCARE Time spent for discharge: 35 minutes Core Measure Documentation - Palliative Care Palliative Care/ Comfort Measures: Not Applicable - Core Measures Any of the following diagnoses?: none Exam - Physical Exam Narrative exam: VITAL SIGNS: Reviewed. GENERAL: The patient appears normally developed, morbidly obese vital signs as documented. HEAD: No signs of head trauma. EYES: Pupils are equal. Extraocular motions intact. EARS: Hearing grossly intact. MOUTH: Oropharynx is normal. NECK: No adenopathy, no JVD. CHEST: Chest with clear breath sounds bilaterally. No wheezes, rales, or rhonchi. CARDIAC: Regular rate and rhythm. S1 and S2, without murmurs, gallops, or rubs. VASCULAR: No Edema. Peripheral pulses normal and equal in all extremities. ABDOMEN: Soft, non tender and non distended. No rebound or guarding, and no masses palpated. Bowel Sounds normal. MUSCULOSKELETAL: Good range of motion of all major joints. Extremities without clubbing, cyanosis or edema. NEUROLOGIC EXAM: Alert and oriented x 3 No focal sensory or strength deficits. Speech normal. Follows commands. PSYCHIATRIC: Mood normal. SKIN: detial exam as documented in skin assessment - Constitutional Vitals: Temp Pulse Resp BP Pulse Ox 98.3 F 80 18 105/56 98 12/06/19 07:47 12/06/19 11:13 12/06/19 07:47 12/06/19 07:47 12/06/19 07:47 Plan Activity: advance as tolerated, fall precautions Diet: low fat Special Instructions: record daily weights, record daily BP diary Follow up with: [facility] [Provider Group] - 2-3 Days Forms: Work/School Release Form Prescriptions: methylPREDNISolone [Medrol 4MG DOSEPAK (21 tabs)] 4 mg PO . DIR #1 tab.ds.pk Ibuprofen [Motrin 600 MG tab] 600 mg PO Q8H PRN #14 tablet PRN Reason: Pain Pantoprazole [Protonix TAB] 40 mg PO QDAY #30 tablet
[2019-12-06 13:23] VITALS: BP 122/71
== END 2019-12-06 15:54 | disposition home or self-care (01) ==
LOC: ED 23:11 → INTOOBSV 12-05 06:14 → 4A 12-05 06:14 → EDBD 12-05 06:14
PROVIDERS: ADMIT Internal Medicine Geriatric Medicine; ATTEND Internal Medicine
DX: R07.89 Other chest pain (principal); R79.89 Other specified abnormal findings of blood chemistry; I24.9 Acute ischemic heart disease, unspecified; I10 Essential (primary) hypertension; M32.9 Systemic lupus erythematosus, unspecified; Z87.891 Personal history of nicotine dependence; Z79.899 Other long term (current) drug therapy; Z88.0 Allergy status to penicillin; Z91.018 Allergy to other foods; Z91.013 Allergy to seafood
CPT/HCPCS: 36415; 71045; 71275; 80048; 80061; 84484; 84703; 85025; 85379; 85520; 85610; 85652; 85730; 86140; 93005; 93010; 93306; 96365; 96366; 96375; 96376; 99285; A9270; G0378; J1644; J1885; J2270; J2405; J2765; Q9967